=== PATIENT | female | born 1950 | race Caucasian/White ===

== ENCOUNTER 2018-05-01 09:21 | Day surgery (SDC) | payer MEDICARE ==
[~2018-05-01] VITALS: Ht 165.1 cm; Wt 65.6 kg
[~2018-05-01 09:21] MED LIST: ATEN100 PO; CYCL10 PO; LISI20 PO
[2018-05-01] MEDS ORDERED: METO25ER (10:48)
[2018-05-01] MEDS ORDERED: Azor 10-20 MG1 EACH (10:49)
== END 2018-05-01 12:08 | disposition home or self-care (01) ==
LOC: ORSCSDS 09:21
PROVIDERS: Internal Medicine Gastroenterology
PROC: 0DBK8ZX Excision of Ascending Colon, Via Natural or Artificial Opening Endoscopic, Diagnostic (ICD-10-PCS; principal; 2018-05-01 10:30)
PROC: 0DBL8ZX Excision of Transverse Colon, Via Natural or Artificial Opening Endoscopic, Diagnostic (ICD-10-PCS; principal; 2018-05-01 10:30)
DX: Z12.11 Encounter for screening for malignant neoplasm of colon (principal); Z86.010 Personal history of colon polyps; D12.2 Benign neoplasm of ascending colon; D12.3 Benign neoplasm of transverse colon; K57.30 Diverticulosis of large intestine without perforation or abscess without bleeding; K64.8 Other hemorrhoids; B19.20 Unspecified viral hepatitis C without hepatic coma; I10 Essential (primary) hypertension; Z79.899 Other long term (current) drug therapy; F17.210 Nicotine dependence, cigarettes, uncomplicated
CPT/HCPCS: 88305; J7120

== ENCOUNTER → 2018-12-31 | Outpatient (CLI) | payer MEDICARE ==
[~2018-12-31] MED LIST changes: +Azor 10-20 MG1 EACH; +METO25ER
== END | disposition home or self-care (01) ==
LOC: PLD 08:56 → LAB SHORT 08:56
DX: D48.5 Neoplasm of uncertain behavior of skin (principal)
CPT/HCPCS: 88305

== ENCOUNTER 2020-04-27 21:24 | Emergency (ER) | payer MEDICARE | END 2020-04-27 23:53 | disposition home or self-care (01) | LOC: ER 21:24 | DX: E86.0 Dehydration (principal); I10 Essential (primary) hypertension; F17.200 Nicotine dependence, unspecified, uncomplicated; Z91.040 Latex allergy status; Z88.6 Allergy status to analgesic agent; Z88.8 Allergy status to other drugs, medicaments and biological substances ==

== ENCOUNTER 2024-11-17 11:01 | Day surgery (SDC) | payer MEDICARE ==
[~2024-11-17] VITALS: Ht 165.1 cm; Wt 64.5 kg
[~2024-11-17 11:01] MED LIST changes: +ACYC800 PO; +Lactated Ringer's 1,000 ML IV ONE; +SERT50 PO; +propofoL 50 ML IV ONE
[2024-11-17] MEDS ORDERED: Lactated Ringer's 1,000 ML IV ONE (11:50)
[2024-11-17] MEDS ORDERED: Midazolam HCL 1 MG/ML 5MLVIAL ONE (12:25)
--- NOTE | 2024-11-17 12:52 | NUR ---
11/17/24 1252 Ugo Beth PTS BP 190-215/90-100S IN OR BEFORE CASE. PT TOOK METOPROLOL THIS AM, PHX OF HTN. 180S/90S IN PRE OP. PT STATED SHE FELT ANXIOUS. 2MG VERSED GIVEN TO PT BEFORE PROCEDURE. BP DECREASED TO 170S/80S. PT STATED SHE FELT LESS ANXIOUS. MD STATED OKAY TO PROCEED WITH PROCEDURE.
[2024-11-17 13:35] VITALS: BP 140/93
--- NOTE | 2024-11-17 13:36 | NUR ---
11/17/24 1336 Donovan Meehan PT INSTRUCTED TO MONITOR B/P AT HOME AND FOLLOW UP WITH PCP NEEDED.
== END 2024-11-17 13:30 | disposition home or self-care (01) ==
LOC: ORSCSDS 11:01
PROVIDERS: Specialist
PROC: 0DJD8ZZ Inspection of Lower Intestinal Tract, Via Natural or Artificial Opening Endoscopic (ICD-10-PCS; principal; 2024-11-17 12:45)
DX: R19.4 Change in bowel habit (principal); Z86.0101 Personal history of adenomatous and serrated colon polyps; Z86.19 Personal history of other infectious and parasitic diseases; K57.30 Diverticulosis of large intestine without perforation or abscess without bleeding; K64.8 Other hemorrhoids; I10 Essential (primary) hypertension; Z79.899 Other long term (current) drug therapy
CPT/HCPCS: J2250; J2704; J7120